=== PATIENT | male | born 1955 | race Caucasian/White ===

== ENCOUNTER 2016-07-05 15:19 | Inpatient (IN) | payer MEDICAID, OTHER ==
[~2016-07-05] VITALS: Ht 177.8 cm; Wt 123.1 kg
[2016-07-05] VITALS (7 sets, daily range): BP systolic 125–132; BP diastolic 78–88; PULSE 73–88; RESP 18; TEMP 96–97.8; O2SAT 96–99
[2016-07-05] MEDS ORDERED: SODIUM CHLOR 0.9% 1000 ML INJ 1,000 ML IV ONE (15:26)
--- NOTE | 2016-07-05 15:41 | RADRPT ---
EXAM DATE/TIME: 07/05/2016 15:17 [facility] COMPARISON: No previous studies available for comparison. INDICATIONS : Stroke Alert. Aphasia. RADIATION DOSE: 56.35 CTDIvol (mGy) This report was called by Meenakshi to Marilou Clifton at 1538 MEDICAL HISTORY : None SURGICAL HISTORY : None. ENCOUNTER: Initial ACUITY: 1 day PAIN SCALE: 0/10 LOCATION: cranial TECHNIQUE: Multiple contiguous axial images were obtained of the head. Using automated exposure control and adj ustment of the mA and/or kV according to patient size, radiation dose was kept as low as reasonably a chievable to obtain optimal diagnostic quality images. FINDINGS: CEREBRUM: The ventricles are normal for age. No evidence of midline shift, mass lesion, hemorrhage or acute in farction. No extra-axial fluid collections are seen. POSTERIOR FOSSA: The cerebellum and brainstem are intact. The 4th ventricle is midline. The cerebellopontine angle i s unremarkable. EXTRACRANIAL: The visualized portion of the orbits is intact. SKULL: The calvaria is intact. No evidence of skull fracture. CONCLUSION: Normal examination. Jose Arrieta MD on July 05, 2016 at 15:37 Board Certified Radiologist. This report was verified electronically.
[2016-07-05 15:47] LABS: BASOPHIL % 0.6 % (0.0-2.0); EOSINOPHIL # 0.1 TH/MM3 (0-0.4); EOSINOPHIL % 1.3 % (0.0-4.0); HEMATOCRIT 38.7 % (39.0-51.0); HEMO FLAGS DIFF FINAL; I-STAT POTASSIUM 3.8 MMOL/L (3.5-4.9); I-STAT SODIUM 140 MMOL/L (138-146); LYMPH % 23.8 % (9.0-44.0); LYMPHOCYTE # 1.5 TH/MM3 (1.0-4.8); MEAN CELL VOLUME 85.2 FL (80.0-100.0); MEAN CORPUSCULAR HEMOGLOBIN 29.6 PG (27.0-34.0); MEAN CORPUSCULAR HGB CONC 34.8 % (32.0-36.0); MONO % 10.3 % (0.0-8.0); PLATELET COUNT 163 TH/MM3 (150-450); RED BLOOD COUNT 4.54 MIL/MM3 (4.50-5.90); RED CELL DISTRIBUTION WIDTH 14.3 % (11.6-17.2); WHITE BLOOD COUNT 6.3 TH/MM3 (4.0-11.0)
[2016-07-05 15:57] LABS: APTT (PATIENT) 26.9 SEC (24.3-30.1)
--- NOTE | 2016-07-05 15:59 | RADRPT ---
EXAM DATE/TIME: 07/05/2016 15:35 [facility] COMPARISON: No previous studies available for comparison. INDICATIONS : Stroke alert MEDICAL HISTORY : None. SURGICAL HISTORY : None. ENCOUNTER: Initial ACUITY: 1 day PAIN SCORE: 0/10 LOCATION: Bilateral chest FINDINGS: A single view of the chest demonstrates the lungs to be symmetrically aerated without evidence of mas s, infiltrate or effusion. The cardiomediastinal contours are unremarkable. Osseous structures are intact. CONCLUSION: Normal examination. Ketan Morris MD on July 05, 2016 at 15:58 Board Certified Radiologist. This report was verified electronically.
[2016-07-05] MEDS ORDERED: HEPARIN-D5W INJ 250 ML IV SCH (16:00)
[2016-07-05 16:06] LABS: CREATINE KINASE 47 U/L (39-308)
[2016-07-05] MEDS ORDERED: IOHEXOL 350 MG/ML 10 ML VIAL (for RAD DIAG) IV ONE (16:36)
--- NOTE | 2016-07-05 16:48 | RADRPT ---
EXAM DATE/TIME: 07/05/2016 16:30 [facility] COMPARISON: No previous studies available for comparison. INDICATIONS : Aphasia. Evaluate for cerebral occlusion. IV CONTRAST: 90 cc Omnipaque 350 (iohexol) IV ; Cumulative dose for multiple exams. RADIATION DOSE: 28.83 CTDIvol (mGy) ; Combined studies MEDICAL HISTORY : Cardiovascular disease. SURGICAL HISTORY : None. ENCOUNTER: Initial ACUITY: 1 day PAIN SCALE: 0/10 LOCATION: cranial TECHNIQUE: Volumetric scanning was performed using a multi-row detector CT scanner. The data was post processed with a variety of visualization algorithms including full volume maximum intensity projection, multi -planar sliding thin slab reformation, curved planar reformation, and surface rendering techniques. Using automated exposure control and adjustment of the mA and/or kV according to patient size, radiat ion dose was kept as low as reasonably achievable to obtain optimal diagnostic quality images. FINDINGS: There is excellent visualization of the major intracranial arteries out to the second-order branch ve ssels. There is no evidence for aneurysm, vessel truncation or stenosis, and no evidence for vascula r malformation. CONCLUSION: Normal examination. Ketan Morris MD on July 05, 2016 at 16:43 Board Certified Radiologist. This report was verified electronically.
--- NOTE | 2016-07-05 16:59 | PD ---
HPI Chief Complaint: Stroke Alert Time Seen by Provider: 15:26 Travel History International Travel<30 days: Yes Contact w/Intl Traveler<30days: Yes Name of Country Traveled to: Travel by air to the [place] with . Traveled to known affect area: No History of Present Illness HPI 58-year-old male presents by ambulance as a stroke alert. He had acute onset at about 3:15 PM with slurred speech and facial droop. When the ambulance team arrived he had no symptoms. The episode lasted 20 minutes per the ambulance team. He is on a full dose aspirin for atrial fibrillation and he was given this by his who is a nurse right when the episode started. His vitals were stable in route. Patient denies other concurrent complaints. He denies modifying factors. Quality resolved PFSH Past Medical History Hx Anticoagulant Therapy: Yes (ECOTRIN 325 DAILY) Cardiovascular Problems: Yes (CARDIAC ABLASION 2010 FOR AFIB) Diminished Hearing: No Hypertension: Yes Past Surgical History Abdominal Surgery: Yes (GASTRIC SLEEVE AND PARTIAL BOWEL RESECTION DUE TO DIVERTICULITIS) Cholecystectomy: Yes Social History Alcohol Use: Yes (OCC) Tobacco Use: No Substance Use: No Allergies-Medications (Allergen,Severity, Reaction): Coded Allergies: No Known Allergies (Unverified , 07/05/16) Review of Systems Except as stated in HPI: all other systems reviewed are Neg Physical Exam Narrative GENERAL: Well-nourished, well-developed patient. SKIN: Warm and dry. HEAD: Normocephalic and atraumatic. EYES: No injection or drainage. ENT: No nasal drainage noted. NECK: Supple, trachea midline. CARDIOVASCULAR: Regular rate and rhythm RESPIRATORY: No increased effort. No accessory muscle use. EXTREMITIES: No edema. NEUROLOGICAL: Awake and alert. Motor and sensory grossly within normal limits. Normal speech. Data Data Last Documented VS Vital Signs Date Time Temp Pulse Resp B/P Pulse Ox O2 Delivery O2 Flow Rate FiO2 07/05/16 16:10 96 21 07/05/16 15:46 Room Air 07/05/16 15:20 97.8 77 18 127/85 Orders Diet Npo (07/05/16 Dinner) Activity Bed Rest (07/05/16 ) Electrocardiogram (07/05/16 ) I-Stat Creatinine (07/05/16 15:26) I-Stat Profile (07/05/16 15:26) Prothrombin Time / Inr (Pt) (07/05/16 15:) Act Partial Throm Time (Ptt) (07/05/16 15:) Complete Blood Count With Diff (07/05/16:) Fibrinogen (07/05/16:) Creatine Kinase (Cpk) (07/05/16:) Troponin I (07/05/16:) Ua Includes Microscopic (07/05/16:) Drug Screen, Random Urine (07/05/16:) Type And Screen (07/05/16:) Ct Brain W/O Iv Contrast(Rout) (07/05/16 ) Chest, Single Ap (07/05/16 ) Cta Brain W Iv Contrast W 3d (07/05/16 15:) Cta Neck W Iv Contrast W 3d (07/05/16 15:) Consult Neurology (07/05/16 ) Blood Glucose (07/05/16:) Ecg Monitoring (07/05/16:) Neuro Checks Q2HX12,Q4H (07/05/16:) Nursing Bedside Swallow Assess .ONCE (07/05/16:) Iv Access Insert/Monitor (07/05/16:) NPO (07/05/16:) Oximetry (07/05/16:) Oxygen Administration (07/05/16:) Sodium Chlor 0.9% 1000 Ml Inj (Ns 1000 M (07/05/16 15:) Resp Oxygen Angel C Titrat 1-4 L (07/05/16:) Cath For Specimen (07/05/16:) Heparin-D5w Inj (Heparin-D5w Inj) (07/05/16 16:00) (Hub Use Only)Inp Phy Cons/Ref (07/05/16 16:26) Iohexol 350 Inj (Omnipaque 350 Inj) (07/05/16 16:36) Act Partial Throm Time (Ptt) (07/05/16 23:00) Admit Order (Ed Use Only) (07/05/16 18:17) Labs Laboratory Tests Test 07/05/16 15:15 White Blood Count 6.3 TH/MM3 Red Blood Count 4.54 MIL/MM3 Hemoglobin 13.4 GM/DL Bedside Hemoglobin 12.9 G/DL Hematocrit 38.7 % Bedside Hematocrit 38.0 % Mean Corpuscular Volume 85.2 FL Mean Corpuscular Hemoglobin 29.6 PG Mean Corpuscular Hemoglobin 34.8 % Concent Red Cell Distribution Width 14.3 % Platelet Count 163 TH/MM3 Mean Platelet Volume 9.0 FL Neutrophils (%) (Auto) 64.0 % Lymphocytes (%) (Auto) 23.8 % Monocytes (%) (Auto) 10.3 % Eosinophils (%) (Auto) 1.3 % Basophils (%) (Auto) 0.6 % Neutrophils # (Auto) 4.0 TH/MM3 Lymphocytes # (Auto) 1.5 TH/MM3 Monocytes # (Auto) 0.6 TH/MM3 Eosinophils # (Auto) 0.1 TH/MM3 Basophils # (Auto) 0.0 TH/MM3 CBC Comment DIFF FINAL Differential Comment Prothrombin Time 11.0 SEC Prothromb Time International 1.0 RATIO Ratio Activated Partial 26.9 SEC Thromboplast Time Fibrinogen 255 mg/dL Bedside Sodium 140 MMOL/L Bedside Potassium 3.8 MMOL/L Bedside Chloride 100 MMOL/L Bedside Blood Urea Nitrogen 21 MG/DL Bedside Creatinine 1.2 MG/DL Bedside Glucose 90 MG/DL Total Creatine Kinase 47 U/L Troponin I LESS THAN 0.02 NG/ML Blood Type A POSITIVE Antibody Screen NEGATIVE MDM Medical Decision Making Medical Screen Exam Complete: Yes Emergency Medical Condition: Yes Interpretation(s) EKG is sinus rhythm with PVCs no STEMI criteria CBC & BMP Diagram 07/05/16 15:15 Last 24 hours Impressions Head CTA 07/05/16 1526 Signed Impressions: Service Date/Time: Tuesday, July 05, 2016 16:30 - CONCLUSION: Normal examination. Ketan Morris MD Head CT 07/05/16 0000 Signed Impressions: Service Date/Time: Tuesday, July 05, 2016 15:17 - CONCLUSION: Normal examination. Jose Arrieta MD Chest X-Ray 07/05/16 0000 Signed Impressions: Service Date/Time: Tuesday, July 05, 2016 15:35 - CONCLUSION: Normal examination. Ketan Morris MD I stats without emergent findings Differential Diagnosis Stroke, bleed, mass, TIA Narrative Course Will check stroke alert protocol and monitor Patient updated and agrees to heparin drip and admission Physician Communication Physician Communication dr gerard states to place on heparin drip and admit and no tpa after discussion dr mckenna agrees to admit, requests that I put in cardiology consult and mri brain that dr gerard requested from the hospitalist service, these were ordered Diagnosis Primary Impression: TIA (transient ischemic attack) Qualified Code: G45.9 - Transient cerebral ischemia, unspecified type Admitting Information Admitting Physician Requests: Admit Jesika Zamarripa MD Jul 05, 2016 16:59
--- NOTE | 2016-07-05 17:00 | RADRPT ---
EXAM DATE/TIME: 07/05/2016 16:30 [facility] COMPARISON: No previous studies available for comparison. INDICATIONS : Aphasia. Evalaute for carotid stenosis. IV CONTRAST: 90 cc Omnipaque 350 (iohexol) IV ; Cumulative dose for multiple exams. RADIATION DOSE: 28.82 CTDIvol (mGy) ; Combined studies MEDICAL HISTORY : Cardiovascular disease. SURGICAL HISTORY : None. ENCOUNTER: Initial ACUITY: 1 day PAIN SCALE: 0/10 LOCATION: neck Elevated flow velocities and ICA/CCA ratios have been found to correlate with increased degrees of vessel stenosis, calculated as percentage of diameter relative to a normal segment of distal ICA/CCA. TECHNIQUE: Volumetric scanning was performed using a multirow detector CT scanner. The data was post processed with a variety of visualization algorithms including full-volume maximum intensity projection, multip lanar sliding thin-slab reformation, curved-planar reformation, and surface-rendering techniques. Us ing automated exposure control and adjustment of the mA and/or kV according to patient size, radiatio n dose was kept as low as reasonably achievable to obtain optimal diagnostic quality images. FINDINGS: AORTIC ARCH: There is a three-vessel origin of the great vessels from the aorta. No evidence of ostial narrowing. RIGHT CAROTID: The common carotid artery is intact. The carotid bulb has a normal configuration without ulceration o r narrowing. The internal carotid artery lumen is smooth without stenosis. The external carotid christopher ry is intact. LEFT CAROTID: The common carotid artery is intact. The carotid bulb has a normal configuration without ulceration or narrowing. The internal carotid artery lumen is smooth without stenosis. The external carotid ar lianne is intact. VERTEBRALS: The vertebral arteries are asymmetric in diameter with the right being dominant. No stenotic lesions are seen. CONCLUSION: No evidence of significant atherosclerotic vascular disease or hemodynamically signif icant stenosis. Celso Mcnair MD on July 05, 2016 at 16:55 Board Certified Radiologist. This report was verified electronically.
--- NOTE | 2016-07-05 19:08 | PD.CONS ---
History of Present Illness Service Neurology Consult Requested By er Reason for Consult stroke alert Primary Care Physician History of Present Illness 58-year-old male presents by ambulance as a stroke alert. He had acute onset of slurred speech and rt facial droop. symptoms resolved by the time he arrived to er. hx of chronic afib, failed ablation performed 3 years ago. followed by cardiology in [place]. takes aspirin daily. works in [place] during weekdays and lives in [place] on the weekends. no giron, no cp. feels back to himself now. cta brain/carotid nml, no significant vessel occlusion. ct brain nml. glucose 90. PFSH Past Medical History Hx Anticoagulant Therapy: Yes (ECOTRIN 325 DAILY) Cardiovascular Problems: Yes (CARDIAC ABLASION 2010 FOR AFIB) Diminished Hearing: No Hypertension: Yes AFIB Past Surgical History Abdominal Surgery: Yes (GASTRIC SLEEVE AND PARTIAL BOWEL RESECTION DUE TO DIVERTICULITIS) Cholecystectomy: Yes Social History Alcohol Use: Yes (OCC) Tobacco Use: No Substance Use: No Allergies-Medications (Allergen,Severity, Reaction): Coded Allergies: No Known Allergies (Unverified , 07/05/16) Review of Systems Except as stated in HPI: all other systems reviewed are Neg Review of Systems All other ROS: ROS reviewed as documented in chart Past Family Social History Allergies: Coded Allergies: No Known Allergies (Unverified , 07/05/16) Active Ordered Medications Current Medications Medications (Trade) Dose Ordered Sig/Raegan Route Start Time Stop Time Status Last Admin Sodium Chloride 1,000 ml @ 70 mls/hr [id number] ONCE IV 07/05/16 15:26 07/06/16 05:43 (Heparin-D5W Inj) 250 ml @ 0 mls/hr TITRATE IV 07/05/16 16:00 07/05/16 16:58 Exam I&O / VS Vital Signs Date Time Temp Pulse Resp B/P Pulse Ox O2 Delivery O2 Flow Rate FiO2 07/05/16 18:30 85 18 125/82 99 Room Air 07/05/16 16:10 96 21 07/05/16 15:46 99 Room Air 07/05/16 15:46 99 Room Air 07/05/16 15:20 97.8 77 18 127/85 98 General: Alert and Oriented, No acute distress Eye: EOMI Respiratory: Non-labored respirations Cardiology: Irregular Rhythm Musculoskeletal: ROM Neurologic: Alert, Oriented, Normal sensory, Normal motor, No focal defects, CN II-XII intact, Gag reflex normal, Normal DTR's Psychiatric: Cooperative, Appropriate mood & affect, Normal judgement, Non- suicidal Review/Management Diagnosis/Plan: (1) TIA (transient ischemic attack) Plan: probable left mca tia cardioembolic from afib symptoms resolved; on hep gtt recs mri brain lipid panel echo hep gtt for now OAC. discussed options: coumadin, novel OAC, the risks/benefits cardiology eval of afib, oac choice. ensure he has non-valvular afib called his called group in [place] [phone], left message for them (2) Afib Problem Qualifiers (1) TIA (transient ischemic attack): Qualified Code: G45.9 - Transient cerebral ischemia, unspecified type (2) Afib: Qualified Code: I48.2 - Chronic atrial fibrillation Paul Fernandez MD Jul 05, 2016 19:08
--- NOTE | 2016-07-05 19:56 | HHI.HP ---
[facility] Service [facility] Primary Care Physician Admission Diagnosis TIA Diagnoses: (1) TIA (transient ischemic attack) Diagnosis: Principal (2) Afib Diagnosis: Principal (3) HTN (hypertension) Diagnosis: Principal Travel History International Travel<30 Days: Yes Contact w/Intl Traveler <30 Da: Yes Name of Country Traveled to: Travel by air to the [place] with . Traveled to Known Affected Are: No History of Present Illness This is a 58-year-old male (Didier Giraldo) with a PMH of A-fib s/p Ablation x3 who was brought to the ER by EMS as a Jose Berg for Stroke Alert. Pt had acute onset of slurred speech and facial droop starting at approx 3: 15pm. Symptoms lasted approx 7-10min and resolved completely by the time of arrival to ER. 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 On ASA for h/o A-fib. CT Head with no acute findings. CXR negative. CTA Neck negative. CTA Head normal. S/p eval by Dr. Fernandez, recommended Heparin gtt and MRI Brain. Currently on Heparin. Review of Systems Except as stated in HPI: all other systems reviewed are Neg ROS: 14 point review of systems otherwise negative. Past Family Social History Past Medical History PMH: A-fib s/p Ablation x3 Past Surgical History PAST SURGICAL HISTORY: Gastric Sleeve, Partial Bowel Resection Allergies: Coded Allergies: No Known Allergies (Unverified , 07/05/16) Family History PAST FAMILY HISTORY: Reviewed. No h/o DM or CAD Social History PAST SOCIAL HISTORY: Occasional alcohol. Negative for tobacco or drugs. Physical Exam Vital Signs Vital Signs Date Time Temp Pulse Resp B/P Pulse Ox O2 Delivery O2 Flow Rate FiO2 07/05/16 18:30 85 18 125/82 99 Room Air 07/05/16 16:10 96 21 07/05/16 15:46 99 Room Air 07/05/16 15:46 99 Room Air 07/05/16 15:20 97.8 77 18 127/85 98 Physical Exam PE: GENERAL: Very pleasant middle-aged white male in no acute distress. at bedside. HEENT: PERRLA, EOMI. No scleral icterus or conjunctival pallor. No lid lag or facial droop. No slurred speech. CARDIOVASCULAR: Regular rate and rhythm. No obvious murmurs to auscultation. No chest tenderness to palpation. RESPIRATORY: No obvious rhonchi or wheezing. Clear to auscultation. Breath sounds equal bilaterally. GASTROINTESTINAL: Abdomen soft, non-tender, nondistended. BS normal. MUSCULOSKELETAL: Extremities without clubbing, cyanosis, or edema. No obvious deformities. NEUROLOGICAL: Awake, alert and oriented x4. No focal neurologic deficits. Moving both upper and lower extremities spontaneously. Laboratory Laboratory Tests Test 07/05/16 15:15 White Blood Count 6.3 Red Blood Count 4.54 Hemoglobin 13.4 Bedside Hemoglobin 12.9 Hematocrit 38.7 Bedside Hematocrit 38.0 Mean Corpuscular Volume 85.2 Mean Corpuscular Hemoglobin 29.6 Mean Corpuscular Hemoglobin 34.8 Concent Red Cell Distribution Width 14.3 Platelet Count 163 Mean Platelet Volume 9.0 Neutrophils (%) (Auto) 64.0 Lymphocytes (%) (Auto) 23.8 Monocytes (%) (Auto) 10.3 Eosinophils (%) (Auto) 1.3 Basophils (%) (Auto) 0.6 Neutrophils # (Auto) 4.0 Lymphocytes # (Auto) 1.5 Monocytes # (Auto) 0.6 Eosinophils # (Auto) 0.1 Basophils # (Auto) 0.0 CBC Comment DIFF FINAL Differential Comment Prothrombin Time 11.0 Prothromb Time International 1.0 Ratio Activated Partial 26.9 Thromboplast Time Fibrinogen 255 Bedside Sodium 140 Bedside Potassium 3.8 Bedside Chloride 100 Bedside Blood Urea Nitrogen 21 Bedside Creatinine 1.2 Bedside Glucose 90 Total Creatine Kinase 47 Troponin I LESS THAN 0.02 Blood Type A POSITIVE Antibody Screen NEGATIVE Result Diagram: 07/05/16 9223 Assessment and Plan Problem List: (1) TIA (transient ischemic attack) ICD Code: G45.9 Status: Acute (2) Afib ICD Code: I48.91 Status: Acute (3) HTN (hypertension) ICD Code: I10 Status: Acute Assessment and Plan A/P: 1. TIA: Acute onset of facial droop/slurred speech, resolved completely by the time of arrival to ER. CT Head, CTA Head/Neck w/ no acute findings, images reviewed by me. S/p eval by Dr. Fernandez, recommended MRI Brain and Heparin gtt. Check Echo, likely embolic event from A-fib. Check Lipid Profile, TSH, Hgb A1c. 2. 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 Currently on Heparin gtt, will need to decide optimal anticoagulation as pt travels frequently for work. 3. HTN: Controlled. BP 120's systolic. Will monitor. 4. DVT Prophylaxis: On Heparin gtt 5. Social work for d/c planning as needed. 6. Case discussed w/ ER physician at length Physician Certification 2 Midnight Certification Type: Admission for Inpatient Services Order for Inpatient Services The services are ordered in accordance with Medicare regulations or non- Medicare payer requirements, as applicable. In the case of services not specified as inpatient-only, they are appropriately provided as inpatient services in accordance with the 2-midnight benchmark. Estimated LOS (days): 2 days is the estimated time the patient will need to remain in the hospital, assuming treatment plan goals are met and no additional complications. Post-Hospital Plan: Not yet determined Problem Qualifiers (1) TIA (transient ischemic attack): Qualified Code: G45.9 - Transient cerebral ischemia, unspecified type (2) Afib: Qualified Code: I48.2 - Chronic atrial fibrillation Claudia Donato MD Jul 05, 2016 19:56
--- NOTE | 2016-07-05 20:06 | RADRPT ---
EXAM DATE/TIME: 07/05/2016 18:51 [facility] COMPARISON: No previous studies available for comparison. INDICATIONS : Stroke. MEDICAL HISTORY : Hypertension. SURGICAL HISTORY : Colon resection. Gastric sleeve. Cardiac ablation. ENCOUNTER: Subsequent ACUITY: 1 day PAIN SCORE: 3/10 LOCATION: cranial TECHNIQUE: Multiplanar, multisequence MRI of the brain was performed without contrast. FINDINGS: CEREBRUM: The ventricles are normal for age. No evidence of midline shift, mass lesion, hemorrhage or acute in farction. No extraaxial fluid collections are seen. The pituitary gland and suprasellar cistern are normal in configuration. WHITE MATTER: No significant signal abnormalities are seen in the white matter. POSTERIOR FOSSA: The cerebellum and brainstem are intact. The 4th ventricle is midline. The cerebellopontine angle is unremarkable. The cerebellar tonsils are normal in position. DIFFUSION IMAGING: No focal areas of restricted diffusion are seen. No evidence of acute infarction. EXTRACRANIAL: The visualized portions of the orbits and paranasal sinuses are unremarkable. CONCLUSION: Normal examination. Jose Arrieta MD on July 05, 2016 at 19:58 Board Certified Radiologist. This report was verified electronically.
[2016-07-05 20:41] LABS: HDL CHOLESTEROL 57.3 MG/DL (40.0-60.0); LDL CHOLESTEROL 70 MG/DL (0-99)
[2016-07-05 23:43] LABS: APTT (PATIENT) 31.1 SEC (24.3-30.1)
[2016-07-06] VITALS (7 sets, daily range): BP systolic 127–131; BP diastolic 83–89; PULSE 63–88; RESP 18–20; TEMP 95.8–97.3; O2SAT 95–99
[2016-07-06 08:38] LABS: APTT (PATIENT) 44.3 SEC (24.3-30.1)
[2016-07-06] MEDS ORDERED: APIXABAN 5 MG TABLET PO SCH (09:15)
--- NOTE | 2016-07-06 09:42 | MB ---
cc: NIKO MELENDEZ MD DATE OF CONSULTATION: 07/06/2016 REASON FOR CONSULTATION: Transient ischemic attack with history of atrial fibrillation. HISTORY OF PRESENT ILLNESS The patient is a very pleasant 58-year-old gentleman with a history of prior atrial fibrillation ablation who presented with acute slurred speech and facial droop on lasting about 7-10 minutes his Cardizem drip. His neurology workup including MRI brain been normal. The patient is completely asymptomatic. He denies any residual neurologic symptoms as well as cardiac symptoms such as chest pain, shortness of breath, palpitations, lightheadedness, dizziness, syncope. He has been all only on aspirin due to a low a LIDA'S vas score. PAST MEDICAL HISTORY: 1. Past medical history of atrial fibrillation status post several ablations had been maintained on aspirin. 2. History of gastric sleeve CURRENT MEDICATIONS Heparin drip. ALLERGIES NO KNOWN DRUG ALLERGIES. PHYSICAL EXAMINATION VITAL SIGNS: Afebrile, pulse 63, respiratory 20, BP 131/87 satting 97% on room air. IN GENERAL: Very pleasant well-appearing gentleman in no distress. NECK: No JVD. LUNGS: Clear auscultation bilaterally. CARDIOVASCULAR SYSTEM: Regular rate rhythm. No murmurs appreciated. ABDOMEN: Benign. EXTREMITIES: No edema. LABORATORY DATA PTT is 44. Sodium was 140, potassium 2.8, chloride 100, BUN 21, creatinine 1.2, troponin is negative x1. EKG shows sinus rhythm with PVCs. White count 6.3, hematocrit 38.7, platelets 163. Neuro imaging showed no evidence of stroke or carotid disease. IMPRESSION Atrial fibrillation. The patient tells me that his atrial fibrillation was not well worked up in the past and his non valvular he has no significant coronary disease or valvular disease by his prior cardiac testing. Discussed the risks, benefits of the various anticoagulants and he chooses Eliquis which will be 5 mg b.i.d. I will start this now and turn his heparin drip off about an hour later to minimize his time off anticoagulation. At that point he can be discharged home from my standpoint to follow up with me in the office I discussed this also with his neurologist, Dr. Martin as well who agrees with this plan. I cancelled this echocardiogram and the patient says that he has had one in the not too distant past and always showed normal ejection fraction with no valvular disease and I hear no significant murmurs on exam. Thank you again for the opportunity to pursue this patient's care. ADDENDUM Correction to prior dictation: The patient's Eliquis will be initiated immediately at the time of heparin drip discontinuation per drug guidelines. MD NICOLAS Dickerson/dayo /9:12 AM /8:52 AM
--- NOTE | 2016-07-06 10:40 | HHI.PR ---
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 suggested xarelto/eliquis (2) Afib Subjective Subjective Comments No acute events reported No headache No chest pain No dyspnea Active Medications Current Medications Medications (Trade) Dose Ordered Sig/Raegan Route Start Time Stop Time Status Last Admin (Eliquis) 5 mg BID PO 07/06/16 09:15 Allergies Allergies Coded Allergies No Known Allergies (Unverified07/05/16) Review of Systems All other ROS: ROS reviewed as documented in chart Exam I&O / VS 07/05/16 07/05/16 07/06/16 15:00 23:00 07:00 Intake Total 240 ml 1062 ml Balance 240 ml 1062 ml Intake Oral 240 ml 360 ml IV Total 702 ml # Voids 2 Vital Signs Date Time Temp Pulse Resp B/P Pulse Ox O2 Delivery O2 Flow Rate FiO2 07/06/16 08:33 95.8 63 20 131/87 97 07/06/16 04:00 96.5 85 18 127/86 98 07/06/16 00:39 95 07/06/16 00:00 97.3 88 18 127/83 96 07/05/16 23:05 76 07/05/16 20:00 96.0 73 18 132/88 97 07/05/16 19:56 88 18 127/78 99 Room Air 07/05/16 18:30 85 18 125/82 99 Room Air 07/05/16 16:10 96 21 07/05/16 15:46 99 Room Air 07/05/16 15:46 99 Room Air 07/05/16 15:20 97.8 77 18 127/85 98 General: Alert and Oriented, No acute distress Eye: EOMI Respiratory: Non-labored respirations Cardiology: Irregular Rhythm Musculoskeletal: ROM Neurologic: Alert, Oriented, Normal sensory, Normal motor, No focal defects, CN II-XII intact, Gag reflex normal, Normal DTR's Psychiatric: Cooperative, Appropriate mood & affect, Normal judgement, Non- suicidal Objective Micro and Labs Laboratory Tests Test 07/05/16 07/05/16 07/06/16 15:15 23:12 07:55 White Blood Count 6.3 Red Blood Count 4.54 Hemoglobin 13.4 Bedside Hemoglobin 12.9 Hematocrit 38.7 Bedside Hematocrit 38.0 Mean Corpuscular Volume 85.2 Mean Corpuscular Hemoglobin 29.6 Mean Corpuscular Hemoglobin 34.8 Concent Red Cell Distribution Width 14.3 Platelet Count 163 Mean Platelet Volume 9.0 Neutrophils (%) (Auto) 64.0 Lymphocytes (%) (Auto) 23.8 Monocytes (%) (Auto) 10.3 Eosinophils (%) (Auto) 1.3 Basophils (%) (Auto) 0.6 Neutrophils # (Auto) 4.0 Lymphocytes # (Auto) 1.5 Monocytes # (Auto) 0.6 Eosinophils # (Auto) 0.1 Basophils # (Auto) 0.0 CBC Comment DIFF FINAL Differential Comment Erythrocyte Sedimentation Rate 5 Prothrombin Time 11.0 Prothromb Time International 1.0 Ratio Activated Partial 26.9 31.1 44.3 Thromboplast Time Fibrinogen 255 Bedside Sodium 140 Bedside Potassium 3.8 Bedside Chloride 100 Bedside Blood Urea Nitrogen 21 Bedside Creatinine 1.2 Bedside Glucose 90 Total Creatine Kinase 47 Troponin I LESS THAN 0.02 Triglycerides Level 97 Cholesterol Level 147 LDL Cholesterol 70 HDL Cholesterol 57.3 Cholesterol/HDL Ratio 2.56 Vitamin B12 Level 471 Thyroid Stimulating Hormone 2.020 3rd Gen Blood Type A POSITIVE Antibody Screen NEGATIVE Problem Qualifiers (1) TIA (transient ischemic attack): Qualified Code: G45.9 - Transient cerebral ischemia, unspecified type (2) Afib: Qualified Code: I48.2 - Chronic atrial fibrillation Paul Fernandez MD Jul 06, 2016 10:40
[2016-07-06 10:46] LABS: HEMOGLOBIN A1a 0.9 %; HEMOGLOBIN A1b 0.7 %; HEMOGLOBIN Ao 86.9 %; HEMOGLOBIN F 0.7 %; HEMOGLOBIN LA1C 1.8 %; HEMOGLOBIN P3 3.6 %
--- NOTE | 2016-07-06 12:31 | HHI.PR ---
Subjective Remarks resting comfortably with no distress. no slurred speech or focal weakness. wants to go home today. Objective Vitals Vital Signs Date Time Temp Pulse Resp B/P Pulse Ox O2 Delivery O2 Flow Rate FiO2 07/06/16 11:35 96.3 65 20 127/89 99 07/06/16 11:33 69 07/06/16 11:31 98 21 07/06/16 08:33 95.8 63 20 131/87 97 07/06/16 04:00 96.5 85 18 127/86 98 07/06/16 00:39 95 07/06/16 00:00 97.3 88 18 127/83 96 07/05/16 23:05 76 07/05/16 20:00 96.0 73 18 132/88 97 07/05/16 19:56 88 18 127/78 99 Room Air 07/05/16 18:30 85 18 125/82 99 Room Air 07/05/16 16:10 96 21 07/05/16 15:46 99 Room Air 07/05/16 15:46 99 Room Air 07/05/16 15:20 97.8 77 18 127/85 98 I/O 07/05/16 07/05/16 07/05/16 07/06/16 07/06/16 07/06/16 07:00 15:00 23:00 07:00 15:00 23:00 Intake Total 240 ml 1062 ml Balance 240 ml 1062 ml Intake Oral 240 ml 360 ml IV Total 702 ml # Voids 2 Result Diagram: 07/05/16 1515 Imaging Last Impressions Neck CTA 07/05/16 1526 Signed Impressions: Service Date/Time: Tuesday, July 05, 2016 16:30 - CONCLUSION: No evidence of significant atherosclerotic vascular disease or hemodynamically significant stenosis. Celso Mcnair MD Head CTA 07/05/16 1526 Signed Impressions: Service Date/Time: Tuesday, July 05, 2016 16:30 - CONCLUSION: Normal examination. Ketan Morris MD Head CT 07/05/16 0000 Signed Impressions: Service Date/Time: Tuesday, July 05, 2016 15:17 - CONCLUSION: Normal examination. Jose Arrieta MD Chest X-Ray 07/05/16 0000 Signed Impressions: Service Date/Time: Tuesday, July 05, 2016 15:35 - CONCLUSION: Normal examination. Ketan Morris MD Brain MRI 07/05/16 0000 Signed Impressions: Service Date/Time: Tuesday, July 05, 2016 18:51 - CONCLUSION: Normal examination. Jose Arrieta MD Objective Remarks GENERAL: This is a well-nourished, well-developed patient, in no apparent distress. CARDIOVASCULAR: Regular rate and regular rhythm without murmurs, gallops, or rubs. RESPIRATORY: Clear to auscultation. Breath sounds equal bilaterally. No wheezes , rales, or rhonchi. GASTROINTESTINAL: Abdomen soft, non-tender, nondistended. Normal, active bowel sounds MUSCULOSKELETAL: Extremities without clubbing, cyanosis, or edema. NEURO: Alert & Oriented x4 to person, place, time, situation. Moves all ext x4 Procedures none Medications and IVs Current Medications Sodium Chloride 1,000 ml @ 70 mls/hr [id number] ONCE IV Last administered on 07/05 20:10; Start 07/05/16 at 15:26; Stop 07/06/16 at 05:43; Status DC Heparin Sodium/ Dextrose (Heparin-D5W Inj) 250 ml @ 0 mls/hr TITRATE IV Last administered on 07/05/16 16:58; Start 07/05/16 at 16:00; Stop 07/06/16 at 09:19 ; Status DC Iohexol (Omnipaque 350 Inj) 90 ml STK-MED ONCE IV Last administered on 16:36; Start 07/05/16 at 16:36; Stop 07/05/16 at 16:37; Status DC Apixaban (Eliquis) 5 mg BID PO ; Start 07/06/16 at 09:15 A/P Assessment and Plan A/P 1. TIA with history of atrial fibrillation. cardiology and neurology evaluation appreciated; started on Eliquis and cleared for discharge by both consultants. f/u as outpatient. 2. HTN: Controlled. BP 120's systolic. Will monitor. Discharge Planning dc home today with f/u with pcp, cardiology and neurology. see med list. d/w the patient. Lane Miller MD Jul 06, 2016 12:31
[2016-07-06] MEDS ORDERED: APIX5TAB PO (12:32)
--- NOTE | 2016-07-06 12:32 | HHI.DCPOC ---
Discharge Care Plan Diagnosis: (1) Afib (2) TIA (transient ischemic attack) Your Health Problems Are: Difficulty with Speech Goals to Promote Your Health * To prevent worsening of your condition and complications * To maintain your health at the optimal level Directions to Meet Your Goals Take your medications as prescribed Follow your dietary instruction Follow activity as directed Keep your appointments as scheduled Take your immunizations and boosters as scheduled If your symptoms worsen call your PCP, if no PCP go to Urgent Care Center or Emergency Room Smoking is Dangerous to Your Health. Avoid second hand smoke Call the 24-hour hour crisis hotline for domestic abuse at Lane Miller MD Jul 06, 2016 12:32
--- NOTE | 2016-07-06 12:33 | HHI.DS ---
Discharge Summary Admission Date Jul 05, 2016 at 18:19 Discharge Date: Jul 06, 2016 Admitting Diagnosis TIA (1) TIA (transient ischemic attack) ICD Code: G45.9 Diagnosis: Principal (2) Afib ICD Code: I48.91 Diagnosis: Principal (3) HTN (hypertension) ICD Code: I10 Diagnosis: Secondary Procedures none Brief History - From Admission This is a 58-year-old male (Didier Giraldo) with a PMH of A-fib s/p Ablation x3 who was brought to the ER by EMS as a Jose Berg for Stroke Alert. Pt had acute onset of slurred speech and facial droop starting at approx 3: 15pm. Symptoms lasted approx 7-10min and resolved completely by the time of arrival to ER. 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 On ASA for h/o A-fib. CT Head with no acute findings. CXR negative. CTA Neck negative. CTA Head normal. S/p eval by Dr. Fernandez, recommended Heparin gtt and MRI Brain. Currently on Heparin. CBC/BMP: 07/05/16 1515 Significant Findings Laboratory Tests Test 07/05/16 07/05/16 07/06/16 15:15 23:12 07:55 Hematocrit 38.7 % (39.0-51.0) Monocytes (%) (Auto) 10.3 % (0.0-8.0) Troponin I LESS THAN 0.02 NG/ML (0.02-0.05) Activated Partial 31.1 SEC 44.3 SEC Thromboplast Time (24.3-30.1) (24.3-30.1) Imaging Last Impressions Neck CTA 07/05/16 1526 Signed Impressions: Service Date/Time: Tuesday, July 05, 2016 16:30 - CONCLUSION: No evidence of significant atherosclerotic vascular disease or hemodynamically significant stenosis. Celso Mcnair MD Head CTA 07/05/16 1526 Signed Impressions: Service Date/Time: Tuesday, July 05, 2016 16:30 - CONCLUSION: Normal examination. Ketan Morris MD Head CT 07/05/16 0000 Signed Impressions: Service Date/Time: Tuesday, July 05, 2016 15:17 - CONCLUSION: Normal examination. Jose Arrieta MD Chest X-Ray 07/05/16 0000 Signed Impressions: Service Date/Time: Tuesday, July 05, 2016 15:35 - CONCLUSION: Normal examination. Ketan Morris MD Brain MRI 07/05/16 0000 Signed Impressions: Service Date/Time: Tuesday, July 05, 2016 18:51 - CONCLUSION: Normal examination. Jose Arrieta MD PE at Discharge GENERAL: This is a well-nourished, well-developed patient, in no apparent distress. CARDIOVASCULAR: Regular rate and regular rhythm without murmurs, gallops, or rubs. RESPIRATORY: Clear to auscultation. Breath sounds equal bilaterally. No wheezes , rales, or rhonchi. GASTROINTESTINAL: Abdomen soft, non-tender, nondistended. Normal, active bowel sounds MUSCULOSKELETAL: Extremities without clubbing, cyanosis, or edema. NEURO: Alert & Oriented x4 to person, place, time, situation. Moves all ext x4 Hospital Course 1. TIA with history of atrial fibrillation. cardiology and neurology evaluation appreciated; started on Eliquis and cleared for discharge by both consultants. f/u as outpatient. 2. HTN: Controlled. BP 120's systolic. Will monitor. Pt Condition on Discharge: Good Discharge Disposition: Discharge Home Discharge Time: <= 30 minutes Discharge Instructions DIET: Follow Instructions for: Heart Healthy Diet Activities you can perform: Regular-No Restrictions Follow up Referrals: Cardiology Neurology PCP Follow-up New Medications: Apixaban (Eliquis) 5 Mg Tab 5 MG PO BID a-fib Days [address] MD Jul 06, 2016 12:33
--- NOTE | 2016-07-06 14:14 | EKG ---
Date Performed: 07/05/2016 Time Performed: 16:10:07 PTAGE: 89 years EKG: Sinus rhythm WITH FREQUENT SUPRAVENTRICULAR PREMATURE COMPLEXES MODERATE INTRAVENTRICULAR CONDUCTION DELAY ABNORM AL RHYTHM ECG NO PREVIOUS TRACING DOCTOR: Didier Glover Interpretating Date/Time 07/06/2016 14:12:56
== END 2016-07-06 13:28 | disposition home or self-care (01) | DRG 69 ==
LOC: NEPC 15:19 → NEDA 18:19 → EDBD 18:19 → N05A 21:20
PROVIDERS: ADMIT Internal Medicine; ATTEND Internal Medicine
DX: G45.9 Transient cerebral ischemic attack, unspecified (principal); I48.2 Chronic atrial fibrillation; I10 Essential (primary) hypertension; R29.810 Facial weakness; R47.81 Slurred speech; Z79.82 Long term (current) use of aspirin; Z98.84 Bariatric surgery status
CPT/HCPCS: 70450; 70496; 70498; 70551; 71010; 80061; 82435; 82550; 82565; 82607; 82947; 83036; 84132; 84295; 84443; 84484; 84520; 85025; 85384; 85610; 85652; 85730; 86850; 86900; 86901; 93005; 96365; J1644; J7030; Q9967